=== PATIENT | female | born 1950 | race Caucasian/White ===

== ENCOUNTER 2016-06-22 17:34 | Emergency (ER) | payer OTHER ==
--- NOTE | 2016-06-24 19:07 | ER ---
ADMIT: 06/22/2016 RM/LOC: ER [facility] MR#: [id number] [address] [id number] ANTHONY THOMPSON [address] [facility] [place] [address] Emergency Room Report SEX: F AGE: 65 : 1950 DATE: 06/22/2016 HISTORY OF PRESENT ILLNESS: The patient is a 65-year-old female with past medical history of depression and hypothyroidism, came to the ER with chief complaint of right flank pain, which started in the morning and is intermittent and waxes and wanes in severity and radiates to right upper quadrant and anterior. The patient denies similar episodes in the past. The patient denies any fever or chills. The patient states she was nauseous and vomited four times and which was nonbloody and nonbilious. The patient had normal bowel movement today. PHYSICAL EXAMINATION: VITAL SIGNS: The patient was afebrile in the ER, heart rate was 59, and the blood pressure was 137/67. GENERAL: The patient was in moderate distress. The patient was alert and oriented to person, place, and time. HEAD AND NECK: Noncontributory. LUNGS: Clear to auscultation bilaterally. ABDOMEN: The patient had mild right upper quadrant tenderness without rebound or guarding. The rest of the physical exam is noncontributory. LABORATORY DATA: WBC of 7.7 with hemoglobin of 13.3 and platelet of 224. Sodium was 141 with potassium of 3.6 and BUN of 9 and glucose level of 137. Creatinine was 0.7. Lipase level was 106. Lactic level was 0.8. Urine was negative for any infection. Pain was controlled, nausea was controlled, the patient was reassessed and abdomen was soft and benign. The patient did not develop any new symptoms. The patient prefers to go home and follow up with the primary doctor. The patient was informed that she is more than welcome to come back to the ER if the symptoms return or if she has any concerns or questions. She acknowledged she understood, then she was discharged to home. DIAGNOSES: 1. Abdominal pain, not otherwise specified, resolved. 2. Questionable dyspepsia. Joe Mims MD/ gavino JOB #: [id number] CC: Nehemiah Castellon MD, Attending Physician Bob Gloria MD, Family Physician
== END 2016-06-22 20:05 | disposition home or self-care (01) ==
LOC: ER 17:34
DX: R10.11 Right upper quadrant pain (principal); F17.210 Nicotine dependence, cigarettes, uncomplicated; Z79.899 Other long term (current) drug therapy